=== PATIENT | female | born 1955 | race Hispanic/Latino ===

== ENCOUNTER → 2018-06-22 | Outpatient (CLI) | payer OTHER ==
[~2018-06-22] MED LIST: MULTI-VITAMIN1 EACH PO; OMEPRAZOLE40 MG PO; VIT D PO
--- NOTE | 2018-07-09 08:37 | Diagnostic Imaging Report ---
#[id number] - [id number] #BILATERAL DIGITAL SCREENING MAMMOGRAM WITH CAD: 06/22/2018 CLINICAL: Routine screening. Comparison is made to exam dated: 08/14/2015 mammogram - [facility]. Current study contains 4 films. There are scattered fibroglandular elements in both breasts. Current study was also evaluated with a Computer Aided Detection (CAD) system. There are benign calcifications in the right breast. There also are benign nodules in the right breast. Additionally there is a benign nodule in the left breast. There also are benign lymph nodes in the left breast. Additionally there are post operative findings with a scar marker present and a biopsy clip in the right breast. Mole marker on the left breast. No significant masses, calcifications or other findings are seen in either breast. There has been no significant interval change. IMPRESSION: BENIGN There is no mammographic evidence of malignancy. A 1 year screening mammogram is recommended. The patient will be notified by letter of the results. Sea Dempsey Jr., D.O. cw/:07/09/2018 07:47:18 Bottom Worker: Lori SAM(Kavon)(M), [facility] letter sent: Compared to Prior B9 Mammogram BI-RADS: 2 Benign
== END ==
LOC: MAMMO 12:25
PROVIDERS: ATTEND Obstetrics & Gynecology
DX: Z12.31 Encounter for screening mammogram for malignant neoplasm of breast (principal)
CPT/HCPCS: 77067